=== PATIENT | male | born 1985 | race Caucasian/White ===

== ENCOUNTER 2016-08-06 21:04 | Emergency (ER) | payer BC ==
[~2016-08-06] VITALS: Ht 177.8 cm; Wt 101.1 kg
[2016-08-06] MEDS ORDERED: MOTRIN800 MG PO (23:34)
[2016-08-06] MEDS ORDERED: NORCO 5/3251 TABLET PO (23:35)
[2016-08-06 23:53] VITALS: BP 127/71
== END 2016-08-06 23:54 | disposition home or self-care (01) ==
LOC: EME 21:04 → RME 21:04
DX: S76.312A Strain of muscle, fascia and tendon of the posterior muscle group at thigh level, left thigh, initial encounter (principal); X58.XXXA Exposure to other specified factors, initial encounter; Y93.64 Activity, baseball
CPT/HCPCS: 99281; 99284